=== PATIENT | male | born 1960 | race Caucasian/White ===

== ENCOUNTER → 2016-12-06 | Outpatient (REF) | payer OTHER | LOC: M LAB REF 12:20 | PROVIDERS: ATTEND Otolaryngology | DX: K12.31 Oral mucositis (ulcerative) due to antineoplastic therapy (principal); C02.1 Malignant neoplasm of border of tongue ==

== ENCOUNTER → 2016-12-20 | Outpatient (CLI) | payer BC, OTHER ==
[2016-12-20 13:31] LABS: BLOOD UREA NITROGEN 15 MG/DL (7-18); CREATININE FOR GFR 1.17 MG/DL (0.70-1.30); GLOMERULAR FILTRATION RATE > 60.0 (>56)
== END ==
LOC: M LAB 12:23
PROVIDERS: ATTEND Otolaryngology
DX: C02.1 Malignant neoplasm of border of tongue (principal)

== ENCOUNTER → 2016-12-22 | Outpatient (CLI) | payer BC, OTHER ==
[~2016-12-22] MED LIST: ISOVUE-370 76% 100ML VIAL (Q9967) As Ordered ONE
--- NOTE | 2016-12-22 08:58 | REP ---
CT NECK WITH CONTRAST: 12/22/2016. 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 Comparison: 12/23/2015, soft tissue ultrasound 12/12/2015. Technique: The patient received a bolus of 75 ml's Isovue 370, scanning through the neck with coronal and sagittal reconstructions. Findings: The base of the brain and bone window review of the skull base again show no intracranial or skull findings in the limited portions included. Mastoids and visualized sinuses clear. Those portions of orbits and contents intact. Bony maxilla and mandible were grossly unchanged. Craniocervical junction aligns normally. There is cervical spondylosis at C5-6 and C6-7, less at C4-5, all unchanged from the previous exam. The parotid and submandibular glands are symmetric and unremarkable and without masses. No adjacent nodes to the submandibular glands. The parotid has some nodes in the carotid space. The right up to 11 mm size, on the previous exam up to 10 mm size with the single largest node on that right side. On the left side, the largest node is 7 mm, previously 9 mm. The nasopharynx and adenoid pad were unremarkable. The oropharynx and hypopharynx intact. I do not see evidence of a mass at the tongue base. Larynx and its vocal folds are symmetric and normal and the subglottic trachea normal. The valleculae and piriform sinuses, epiglottis and prevertebral soft tissues are unremarkable. Thyroid cartilage is intact. Thyroid lobes symmetric and grossly intact. The other anterior and posterior cervical chain nodes are unremarkable. There is no supraclavicular mass or adenopathy. Strap muscles in the neck symmetric and normal. The lateral pharyngeal pillai and tonsillar fossa are generally symmetric and grossly intact. There is some dependent atelectatic changes in the upper lung zones without other acute finding. Impression: 1. No tongue base mass or tissue asymmetry. The nasopharynx through hypopharynx, larynx and subglottic trachea were unremarkable. 2. In the right carotid space, there is a 11 mm lymph node, 10 mm on the previous study with largest node on the left side in the same location measuring 7 mm, previously 9 mm. No other similar sized nodes in the anterior or posterior neck or supraclavicular fossa. 3. Parapharyngeal spaces, tonsillar fossa, prevertebral tissues unremarkable. No visible mass. Signed by Latrell Mullins MD 12/22/2016 12:25 P
== END ==
LOC: M RAD 07:22
PROVIDERS: ATTEND Otolaryngology
DX: K13.21 Leukoplakia of oral mucosa, including tongue (principal)
CPT/HCPCS: 70491; Q9967

== ENCOUNTER → 2017-01-19 | Outpatient (CLI) | payer BC, OTHER ==
--- NOTE | 2017-01-20 20:07 | REP ---
Whole body PET CT scan: The study is correlated with CT of the neck dated 12/22/2016. Scanning is performed from skull base to the upper thighs. Neck and supraclavicular areas: There is a focus of hypermetabolic uptake along the tongue on the right with a standard uptake value of 10.7. There are no other hypermetabolic foci in the neck or supraclavicular areas. Chest: There are no hypermetabolic foci. Abdomen, pelvis and upper thighs: There is a focus of hypermetabolic uptake in a right iliac node with the standard uptake value of 17.9. The note is upper normal size measuring 1 cm in diameter. Radiolabeling of the right ureter can be seen posteromedial to the uptake in the node. There are no other hypermetabolic foci. There is physiologic radio tracer excretion in the left kidney. The the patient has a right nephrectomy. Impression: There is focal hypermetabolic uptake in the oropharynx on the right, likely in the tongue. No other hypermetabolic foci in the neck or supraclavicular areas. There is hypermetabolic uptake in a right iliac node as described. No other hypermetabolic foci in the abdomen, pelvis, upper thighs or chest. The studies performed with 10 mCi of F 18 F D G . Signed by Winston Kenney MD 01/20/2017 07:58 P
== END ==
LOC: M PLARAD 09:42
PROVIDERS: ATTEND Otolaryngology
DX: C02.1 Malignant neoplasm of border of tongue (principal)
CPT/HCPCS: 78815; A9552

== ENCOUNTER → 2018-01-04 | Outpatient (CLI) | payer OTHER, BC | LOC: M RAD 18:15 | DX: S83.522A Sprain of posterior cruciate ligament of left knee, initial encounter (principal); X58.XXXA Exposure to other specified factors, initial encounter; Y92.89 Other specified places as the place of occurrence of the external cause; Y93.9 Activity, unspecified; Y99.9 Unspecified external cause status ==

== ENCOUNTER → 2020-05-30 | Outpatient (CLI) | payer BC, OTHER ==
[~2020-05-30] MED LIST changes: -ISOVUE-370 76% 100ML VIAL (Q9967) As Ordered ONE; +ISOVUE-370 76% 100ML VIAL As Ordered ONE
[2020-05-30 16:45] LABS: BLOOD UREA NITROGEN 10 MG/DL (7-18); CARBON DIOXIDE LEVEL 27 MEQ/L (21-32); CHLORIDE LEVEL 107 MEQ/L (98-107); CREATININE FOR GFR 1.28 MG/DL (0.70-1.30); GLOMERULAR FILTRATION RATE > 60.0 (>56); GLUCOSE, FASTING 91 MG/DL (70-100); POTASSIUM SERUM 3.7 MEQ/L (3.5-5.1); SODIUM LEVEL 139 MEQ/L (136-145)
--- NOTE | 2020-05-31 11:54 | REPVR ---
PROCEDURE INFORMATION: Exam: CT Neck With Contrast Exam date and time: 05/30/2020 4:59 PM Age: 59 years old Clinical indication: Mass, lump, or swelling in neck; Prior surgery; Surgery date: 6+ months; Surgery type: Tongue tumor removed; Additional info: Neck mass, HX of malignant neoplasm of tongue TECHNIQUE: Imaging protocol: Computed tomography images of the neck with intravenous contrast. Radiation optimization: All CT scans at this facility use at least one of these dose optimization techniques: automated exposure control; mA and/or kV adjustment per patient size (includes targeted exams where dose is matched to clinical indication); or iterative reconstruction. Contrast material: ISOVUE 370; Contrast volume: 75 ml; Contrast route: INTRAVENOUS (IV); COMPARISON: CT Neck with contrast 12/22/2016 7:49 AM FINDINGS: Brain: The imaged brain is unremarkable. Mastoid air cells: The imaged tympanomastoid cavities are aerated. Nasal cavity: Normal. Nasopharynx: Unremarkable. Oral cavity and Oropharynx: There are surgical changes from interval resection of a right tongue mass, with associated volume loss in the right tongue and no appreciable mass although beam hardening artifact from dental hardware significantly degrades evaluation of the tongue. Hypopharynx: Unremarkable. Larynx: Normal. Retropharyngeal space: Unremarkable. Submandibular/Parotid glands: Surgical change from a right floor of mouth dissection with resection of portions of the mylohyoid, resection of the sublingual gland, and submandibular gland. The bilateral parotid glands, left submandibular gland and left sublingual glands are unremarkable. Thyroid: Normal. Lymph nodes: Selective right cervical lymph node dissection with surgical clips along the right neck. No cervical lymphadenopathy. Trachea: Visualized trachea is unremarkable. Lungs: Mild dependent atelectasis. Bones/joints: No acute abnormality. Soft tissues: No significant soft tissue swelling. IMPRESSION: Surgical change from right tongue mass and floor of mouth resection and right holden dissection. Assessment of the tongue is degraded secondary to dental hardware artifact (on future CTs a dedicated dental hardware oblique imaging protocol would be beneficial to reduce this artifact). Within that constraint, there is no evidence of recurrence tongue or floor of mouth mass or cervical lymphadenopathy. Electronically signed by: Brian Driscoll On 05/31/2020 11:54:46 AM
== END ==
LOC: M RAD 15:01
DX: C06.9 Malignant neoplasm of mouth, unspecified (principal); Z85.810 Personal history of malignant neoplasm of tongue
CPT/HCPCS: 70491; 80048; Q9967

== ENCOUNTER → 2021-03-02 | Outpatient (CLI) | payer BC, OTHER ==
--- NOTE | 2021-03-02 16:48 | REP ---
INDICATION: MID TESIT MASS. Midline mass. COMPARISON: None. TECHNIQUE: High-resolution bilateral scrotal sonography. FINDINGS: Bilateral scrotal sonography shows no evidence of intratesticular mass on either side. Right testis measures 5.1 x 2.4 x 2.9 cm. Left testicular dimensions are 5.3 x 2.2 x 3.0 cm. Scanning in the rib area of the scrotum to which we were directed by the patient shows no scrotal wall or other abnormality. No cyst or mass is seen at this site. Testicular Doppler flow is normal, resistive indices measure 0.62 on the right and 0.57 on the left. There is a tiny cyst in the lower pole of the right testis. Epididymi are unremarkable. IMPRESSION: No significant abnormality. No intratesticular mass lesion. Normal Doppler flow. <Electronically signed by Eyal Alexis > 03/02/21 [id number]
== END ==
LOC: M RAD 15:17
PROVIDERS: ATTEND Physician Assistant Medical
DX: N50.9 Disorder of male genital organs, unspecified (principal)

== ENCOUNTER → 2021-06-11 | Outpatient (REF) | payer BC, OTHER | LOC: M LAB REF 19:32 | PROVIDERS: ATTEND Surgery | DX: D17.1 Benign lipomatous neoplasm of skin and subcutaneous tissue of trunk (principal); D17.22 Benign lipomatous neoplasm of skin and subcutaneous tissue of left arm ==

== ENCOUNTER → 2023-03-13 | Outpatient (REF) | payer OTHER, BC | LOC: M LAB REF 17:29 | PROVIDERS: ATTEND Physician Assistant Medical | DX: B34.9 Viral infection, unspecified (principal) ==

== ENCOUNTER → 2023-09-13 | Outpatient (CLI) | payer OTHER, BC | LOC: M WUC 11:12 | PROVIDERS: ATTEND Physician Assistant Medical | DX: M47.812 Spondylosis without myelopathy or radiculopathy, cervical region (principal) ==

== ENCOUNTER → 2023-09-13 | Outpatient (REF) | payer OTHER, BC ==
[2023-09-13 14:03] LABS: C REACTIVE PROTEIN QUANTITATIV < 0.40 MG/DL (<1.0)
[2023-09-13 14:12] LABS: VITAMIN B12 LEVEL 403 PG/ML (211-911)
[2023-09-13 14:48] LABS: RHEUMATOID FACTOR QUANT < 3.5 IU/ML (<14)
[2023-09-15 16:09] LABS: ANCA-ATYPICAL <1:20 titer (Neg:<1:20); ANTINUCLEAR ANTIBODIES DIRECT Negative (Negative); CYTOPLASMIC NEUTROP AB ANCA-C <1:20 titer (Neg:<1:20); PERINUCLEAR AB ANCA-P <1:20 titer (Neg:<1:20); TESTOSTERONE FREE (DIRECT) 12.2 pg/mL (6.6-18.1)
== END ==
LOC: M LAB REF 12:14
PROVIDERS: ATTEND Physician Assistant Medical
DX: R53.83 Other fatigue (principal); R20.2 Paresthesia of skin

== ENCOUNTER → 2024-02-27 | Outpatient (REF) | payer OTHER, BC ==
[2024-02-27 17:37] LABS: INR 1.17; PARTIAL THROMBOPLASTIN TIME 27.9 SECONDS (24.8-34.2); PROTHROMBIN TIME 14.5 SECONDS (12.5-14.5)
== END ==
LOC: M LAB REF 16:44
PROVIDERS: ATTEND Internal Medicine
DX: Z01.818 Encounter for other preprocedural examination (principal)

== ENCOUNTER → 2024-12-21 | Outpatient (REF) | payer OTHER, BC | LOC: M SMT 13:06 | PROVIDERS: ATTEND Urology | DX: R97.20 Elevated prostate specific antigen [PSA] (principal) ==

== ENCOUNTER → 2025-05-17 | Outpatient (CLI) | payer BC | LOC: M RAD 13:02 | PROVIDERS: ATTEND Physician Assistant Medical | DX: K40.20 Bilateral inguinal hernia, without obstruction or gangrene, not specified as recurrent (principal) ==

== ENCOUNTER 2025-06-28 09:16 | Day surgery (SDC) | payer BC ==
[~2025-06-28] VITALS: Ht 167.6 cm; Wt 76.2 kg
[~2025-06-28 09:16] MED LIST changes: -ISOVUE-370 76% 100ML VIAL As Ordered ONE; +OMEP40CA5 PO
[2025-06-28] MEDS: LR 1,000 ML IV SCH (10:20)
[2025-06-28] MEDS: ceFAZolin SOD 2 GM IV ONCE IV ONE (10:48)
[2025-06-28] MEDS ORDERED: LIDOCAINE 2% 100 MG/5 ML SDV (FOR ANES.) As Ordered ONE (10:53)
[2025-06-28] MEDS ORDERED: ACETAMINOPHEN 1000MG/100ML IV BAG As Ordered ONE (10:53)
[2025-06-28] MEDS ORDERED: dexAMETHasone 4 MG/ML 1 ML VIAL As Ordered ONE (10:53)
[2025-06-28] MEDS ORDERED: ROCURONIUM BROMIDE 50MG/5ML VIAL As Ordered ONE (10:53)
[2025-06-28] MEDS ORDERED: SUGAMMADEX SODIUM 200 MG/2 ML VIAL As Ordered ONE (10:53)
[2025-06-28] MEDS ORDERED: MIDAZOLAM INJ 2 MG/2 ML VIAL As Ordered ONE (10:53)
[2025-06-28] MEDS ORDERED: ONDANSETRON 4MG/2ML VIAL As Ordered ONE (10:53)
[2025-06-28] MEDS ORDERED: KETOROLAC 30 MG/ML 1 ML VIAL As Ordered ONE (11:13)
[2025-06-28] MEDS ORDERED: ESMOLOL 100 MG/10 ML VIAL As Ordered ONE (11:33)
[2025-06-28] MEDS ORDERED: ONDANSETRON 4MG/2ML VIAL IV PRN (11:55)
[2025-06-28] MEDS ORDERED: HYDROMORPHONE HCL 0.5 MG/0.5 ML SYRINGE IV PRN (11:55)
[2025-06-28] MEDS ORDERED: LR 1,000 ML IV SCH (11:55)
[2025-06-28 13:09] VITALS: BP 150/84; TEMP 97; O2SAT 100
== END 2025-06-28 13:31 | disposition home or self-care (01) ==
LOC: M SDC 09:16
PROVIDERS: ATTEND Surgery
DX: K40.90 Unilateral inguinal hernia, without obstruction or gangrene, not specified as recurrent (principal); K21.9 Gastro-esophageal reflux disease without esophagitis; Z79.899 Other long term (current) drug therapy; Z88.0 Allergy status to penicillin; Z85.810 Personal history of malignant neoplasm of tongue; Z90.5 Acquired absence of kidney; Z87.891 Personal history of nicotine dependence
CPT/HCPCS: 49650; C1781; J0131; J0665; J0688; J1100; J1805; J1885; J2250; J2405; J3010; S2900